=== PATIENT | male | born 1970 | race Caucasian/White ===

== ENCOUNTER 2023-12-26 06:40 | Emergency (ER) | payer OTHER, SELFPAY ==
[2023-12-26 06:45] VITALS: BP 154/99; PULSE 75; RESP 20; TEMP 36.8; O2SAT 99; BMI 30.3
--- NOTE | 2023-12-26 07:02 | ED_ITS ---
HPI - General Adult General Chief complaint: Dental/Oral/Mouth Injury/Pain Stated complaint: left side face swelling, toothache Time Seen by Provider: 12/26/23 07:02 History of Present Illness HPI narrative: CC: Right Upper Tooth Pain pt. with right tooth pain for last 3 days. has an appt. with dentist tomorrow. denies fevers, n/v, diarrhea. pt. did take 600mg ibuprofen prior to coming to ED. 53-year-old man presenting to the emergency department Swelling coming going over the last 3 days. Got much worse now finally today. He had been hoping to wait it out. Partner who accompanies notes very high pain tolerance. No drainage. No trauma. No fever. Has treated with ibuprofen. Does have a history of traumatic jaw fractures. Related Data Previous Rx's ?Medication ?Instructions ?Recorded lidocaine HCl 2 % mucosal solution 1.2 ml mucous membrane QID PRN #50 12/26/23 (Lidocaine Viscous) mL lidocaine HCl 4 % (40 mg/mL) 1 ml mucous membrane QID PRN pain 12/26/23 mucosal solution #50 mL Allergies Allergy/AdvReac Type Severity Reaction Status Date / Time erythromycin base Allergy Unknown Verified 12/26/23 06:48 Review of Systems Status of ROS: Reports: 6 or more systems reviewed and unremarkable except as noted in History and below [facility] Medical History No significant past medical history Surgical History (Updated 12/26/23 @ 06:52 by Harish Enriquez RN) No significant past surgical history Social History Smoking Status: Never smoker Second hand tobacco smoke exposure: No How often do you have a drink containing alcohol: never AUDIT-C Alcohol total score: 0 Non-prescribed substance use: denies use Exam Narrative: Exam Narrative: Pleasant. Seems uncomfortable. Notable swelling without erythema at the right mid mandibular area. Generally tender to palpation around here. No clear cellulitic change. Kevin pharyngeal exam with some high prostatic bone. Dentition actually looks in decent repair. Neck is supple without lymphadenopathy. Heart is regular rate and rhythm. Const: Vital Signs, click to edit/add: Vital Signs - 24 hr 12/26/23 06:45 Temperature 98.2 F Pulse Rate [Right Pulse Oximeter] 75 Respiratory Rate 20 Blood Pressure [Ri ght Upper Arm] 154/99 H Pulse Oximetry 99 Oxygen Delivery Me thod Room Air Documenting provider has reviewed patient's vital signs: yes Course Vital Signs Vital signs: Initial Vital Signs Temperature 98.2 F 12/26/23 06:45 Temperature Source Temporal Artery Scan 12/26/23 06:45 Pulse Rate 75 12/26/23 06:45 Respiratory Rate 20 12/26/23 06:45 Blood Pressure 154/99 H 12/26/23 06:45 Blood Pressure Mean 117 H 12/26/23 06:45 Blood Pressure Position Sitting 12/26/23 06:45 Pulse Oximetry 99 12/26/23 06:45 Oxygen Delivery Method Room Air 12/26/23 06:45 Vital Signs Temperature 98.2 F 12/26/23 06:45 Pulse Rate 75 12/26/23 06:45 Respiratory Rate 20 12/26/23 06:45 Blood Pressure 154/99 H 12/26/23 06:45 Pulse Oximetry 99 12/26/23 06:45 Oxygen Delivery Method Room Air 12/26/23 06:45 Temperature 98.2 F 12/26/23 06:45 Pulse Rate 75 12/26/23 06:45 Respiratory Rate 20 12/26/23 06:45 Blood Pressure 154/99 H 12/26/23 06:45 Pulse Oximetry 99 12/26/23 06:45 Oxygen Delivery Method Room Air 12/26/23 06:45 Medical Decision Making MDM Narrative Medical decision making narrative: He would appreciate more immediate relief of pain of his apprehensive of needles. I have to assume infectious etiology here although I do not see any discrete fluid collection/abscess that would be drainable. Might be somewhat reactive to nerve root pain. Decided to proceed with lingual and buccal block with bupivacaine. Injected 1.5 mL posterior right lingual block. This did achieve some mild improvement and further injected 1ml in mid right lower jaw in a buccal block. Still with decent amount of pain but knocked down by at least half. Discussed further needs for pain management. Anticipating follow-up with dentist. Spouse requesting on oral rinse of anesthetic like lidocaine as this had been helpful for a family member. See patient discharge plan for further discussion Discharge Plan Discharge Clinical Impression: Pain, dental Additional Instructions: Can place hot or cold compresses as tolerated. As requested am sending in prescription for some oral lidocaine rinse. Otherwise [place] and penicillin from [facility]. Watch for increasing tension, redness and heat or fever as recent to be seen sooner. Please follow-up tomorrow as scheduled. Prescriptions: New lidocaine HCl 4 % (40 mg/mL) solution 1 ml mucous membrane QID PRN (Reason: pain) Qty: 50 0RF lidocaine HCl [Lidocaine Viscous] 2 % solution 1.2 ml mucous membrane QID PRNQty: 50 0RF Follow Up/Referrals: Provider,Not a Local [Primary Care Provider] - Stand Alone Forms: [facility] Info Instructions
== END 2023-12-26 08:28 | disposition home or self-care (01) ==
PROVIDERS: Emergency Provider Family Medicine
DX: K08.89 Other specified disorders of teeth and supporting structures (principal)
CPT/HCPCS: 64400; 99283; 99284